=== PATIENT | female | born 2000 | race Caucasian/White ===

== ENCOUNTER 2024-12-20 23:55 | Emergency (ER) | payer BC ==
[~2024-12-20] VITALS: Ht 160 cm; Wt 84.0 kg
[2024-12-21] MEDS ORDERED: LEVO75TA4 PO (00:07)
[2024-12-21 00:25] LABS: BASO # 0.0 10^3/uL (0.0-0.2); BASO % 0.4 % (0.0-1.0); EOS # 0.2 10^3/uL (0.0-0.5); EOS % 2.3 % (0.0-3.0); LYMPH # 2.1 10^3/uL (1.5-5.0); LYMPH % 29.4 % (24.0-44.0); MONO # 0.4 10^3/uL (0.0-0.8); MONO % 6.2 % (2.0-8.0); NEUTROPHILS # 4.3 10^3/uL (1.5-8.5); NEUTROPHILS % 61.1 % (36.0-66.0); PLATELET COUNT, AUTOMATED 258 10^3/uL (150-450)
[2024-12-21 01:04] LABS: ALT/SGPT 123 U/L (7.0-40); AST/SGOT 69 U/L (<34); CALCIUM LEVEL 7.8 MG/DL (8.5-10.1); CARBON DIOXIDE LEVEL 19 MMOL/L (20-31); CHLORIDE LEVEL 106 MMOL/L (98-107); CREATININE FOR GFR 0.51 MG/DL (0.55-1.30); GLOMERULAR FILTRATION RATE > 90.0 (>60); POTASSIUM SERUM 4.0 MMOL/L (3.5-5.1); SODIUM LEVEL 139 MMOL/L (136-145)
[2024-12-21 01:41] LABS: APPEARANCE, URINE CLEAR (CLEAR); BACTERIA, URINE AUTO NEGATIVE (NEGATIVE); BILIRUBIN, URINE AUTO NEGATIVE (NEGATIVE); BLOOD, URINE BLOOD NEGATIVE (NEGATIVE); GLUCOSE, URINE (UA) AUTO NEGATIVE (NEGATIVE); KETONE, URINE AUTO TRACE mg/dL (NEGATIVE); LEUKOCYTE ESTERASE, URINE AUTO NEGATIVE (NEGATIVE); MUCUS, URINE SMALL (NEGATIVE); NITRITE, URINE AUTO NEGATIVE (NEGATIVE); PROTEIN, URINE AUTO 1+ mg/dL (NEGATIVE); RBC, URINE AUTO 1 /HPF (0-3); SPECIFIC GRAVITY URINE AUTO 1.026 (1.002-1.035); SQUAMOUS EPITHELIAL CELL UR AU 2 /HPF (0-6); UROBILINOGEN, URINE AUTO 2.0 mg/dL (0.0-2.0); WBC, URINE AUTO 1 /HPF (0-3)
[2024-12-21 06:07] LABS: INR 0.96
[2024-12-21 06:13] VITALS: BP 107/54; TEMP 97.4; O2SAT 98
== END 2024-12-21 06:15 | disposition home or self-care (01) ==
LOC: M ED 23:55
DX: O26.643 Intrahepatic cholestasis of pregnancy, third trimester (principal); R16.0 Hepatomegaly, not elsewhere classified; E06.3 Autoimmune thyroiditis; Z3A.33 33 weeks gestation of pregnancy; Z79.899 Other long term (current) drug therapy; Z88.0 Allergy status to penicillin; Z88.1 Allergy status to other antibiotic agents

== ENCOUNTER 2025-01-02 20:11 | Outpatient (CLI) | payer BC ==
[~2025-01-02] VITALS: Ht 160 cm; Wt 84.0 kg
[~2025-01-02 20:11] MED LIST: LEVO75TA4 PO
[2025-01-02 20:38] VITALS: BP 114/57
[2025-01-02] MEDS ORDERED: URSO300C3 (20:57)
[2025-01-02] MEDS ORDERED: FAMO10TA50 PO (21:24)
[2025-01-02 21:53] LABS: KETONE, URINE AUTO RFX TRACE mg/dL (NEGATIVE); LEUKOCYTE ESTERASE UR AUTO RFX NEGATIVE (NEGATIVE); MUCUS, URINE RFX SMALL (NEGATIVE); NITRITE, URINE AUTO RFX NEGATIVE (NEGATIVE); RBC, URINE AUTO RFX 0 /HPF (0-3); SQUAM EPITHELIAL CELL UR AURFX 1 /HPF (0-6); WBC, URINE AUTO RFX 1 /HPF (0-3)
[2025-01-02 22:15] VITALS: BP 104/53
== END 2025-01-02 22:12 | disposition home or self-care (01) ==
LOC: M LDO 20:11
PROVIDERS: ATTEND Obstetrics & Gynecology
DX: O47.03 False labor before 37 completed weeks of gestation, third trimester (principal); O26.643 Intrahepatic cholestasis of pregnancy, third trimester; Z3A.35 35 weeks gestation of pregnancy
CPT/HCPCS: 59025; 81001; G0463